=== PATIENT | male | born 1980 | race Caucasian/White ===

== ENCOUNTER 2017-05-19 21:55 | Emergency (ER) | payer OTHER ==
[2017-05-19 22:10] VITALS: TEMP 97
[2017-05-19] MEDS ORDERED: KETOROLAC 30 MG/ML 1 ML VIAL IM STA (22:38)
--- NOTE | 2017-05-19 22:51 | ED ---
Back Pain HPI - General Chief Complaint: Back Pain/Injury Stated Complaint: Back Pain Time Seen by Provider: 05/19/17 22:27 Source: patient, RN notes reviewed Limitations: no limitations - History of Present Illness Initial Comments: This is a 36-year-old male who presents to the emergency department with chief complaint of acute low back pain. Patient states he has a history of chronic low back pain since 2006 or 2007 when he had some lumbar bulging disks. Patient states this morning he awoke with some dull right-sided low back pain. He went throughout his day and return home to take a nap. When he awoke from his nap he had an increase in the pain. He decided to take a hot shower thinking that would help and there was no relief. Patient states that pain is positional, increasing with bending over. He denies any urinary symptoms such as dysuria, increased frequency or hematuria. He denies any saddle paresthesias or loss of bladder or bowel function. Denies numbness or tingling or radiation of pain down the legs.Denies fever, chills, chest pain, shortness of breath, abdominal pain, nausea or vomiting, constipation or diarrhea, dysuria or hematuria, numbness or tingling, headache or vision changes. - Related Data Previous Rx's Medication Instructions Recorded Cyclobenzaprine [Flexeril] 10 mg PO TID #21 tab 05/19/17 Ibuprofen 600 mg PO Q6HR #30 tablet 05/19/17 Allergies Allergy/AdvReac Type Severity Reaction Status Date / Time No Known Allergies Allergy Verified 05/19/17 22:09 Review of Systems ROS Statement: Those systems with pertinent positive or pertinent negative responses have been documented in the HPI. ROS Other: All systems not noted in ROS Statement are negative. Past Medical History Past Medical History: No Reported History History of Any Multi-Drug Resistant Organisms: None Reported Past Surgical History: No Surgical Hx Reported Additional Past Surgical History / Comment(s): injections in back 2010 Past Psychological History: No Psychological Hx Reported Smoking Status: Never smoker Past Alcohol Use History: None Reported Past Drug Use History: None Reported General Exam - General Exam Comments Initial Comments: General: Awake and alert, well-developed; in no apparent distress. HEENT: Head atraumatic, normocephalic. Pupils are equal, round and reactive to light. Extraocular movements intact. Neck: Supple. Normal ROM. No tenderness. Back: Tenderness on palpation of the right-sided lumbar paraspinal muscles. No vertebral bony point tenderness or SI joint tenderness. Sensation is intact. Pedal pulses are 2+ equal and palpable bilaterally. Cardiovascular: Regular rate and rhythm. No murmurs, rubs or gallops. Chest symmetrical. Respiratory: Lungs clear to auscultation bilaterally. No wheezes, rales or rhonchi. Normal respiratory effort with no use of accessory muscles. Musculoskeletal: Normal ROM, no tenderness bilateral upper and lower extremities. Ambulating normally. Skin: [place], warm and dry without rashes or lesions. Neurological: Alert and oriented x3. CN II-XII grossly intact. Speech is fluent and answers are appropriate. No focal neuro deficits. Psychiatric: Normal mood and affect. No overt signs of depression or anxiety noted. Limitations: no limitations Course Vital Signs 05/19/17 22:05 Temperature 97.0 F L Pulse Rate 89 Respiratory 16 Rate Blood Pressure 155/87 O2 Sat by Pulse 99 Oximetry Medical Decision Making - Medical Decision Making This is a 36-year-old male who presents to the emergency department with chief complaint of acute on chronic low back pain. Lumbar x-rays were obtained and were negative for any acute abnormalities. Patient received an IM injection of Toradol while in the emergency department. Patient denies any saddle paresthesias, loss of bladder or bowel function, IV drug use. Patient's pain is localized to the right-sided lumbar paraspinal muscles. Pain is positional, increasing with movement. Patient denies any urinary symptoms. He will be discharged home with prescriptions for anti-inflammatories and muscle relaxers. Patient is in agreement with [employer] voices understanding. All questions were answered. - Radiology Data Radiology results: report reviewed Lumbar spine x-ray findings: Normal alignment. Disc spaces are normal. Posterior elements are intact. I see no compression fracture. Sacroiliac joints appear normal. Impression: Negative lumbar spine exam. Disposition Clinical Impression: Strain of lumbar region Disposition: HOME SELF-CARE Condition: Good Instructions: Acute Low Back Pain (ED) Additional Instructions: Please take medications as prescribed. Please follow up with primary care provider within 1-2 days. Return to emergency department if symptoms should worsen or any concerns arise. Prescriptions: Cyclobenzaprine [Flexeril] 10 mg PO TID #21 tab Ibuprofen 600 mg PO Q6HR #30 tablet Referrals: None,Stated [Primary Care Provider] - 1-2 days Chelly Mcgrath MD [STAFF PHYSICIAN] - 1-2 days Time of Disposition: 23:49
--- NOTE | 2017-05-19 22:55 | XR ---
EXAMINATION TYPE: XR lumbar spine 2 or 3V DATE OF EXAM: 05/19/2017 COMPARISON: NONE HISTORY: Back pain TECHNIQUE: 3 views FINDINGS: Vertebra have normal alignment. Disc spaces are normal. Posterior elements are intact. I se e no compression fracture. Sacroiliac joints appear normal. IMPRESSION: Negative lumbar spine exam.
[2017-05-20 00:20] VITALS: BP 149/85; PULSE 95; RESP 18
== END 2017-05-20 00:24 | disposition home or self-care (01) ==
LOC: EC 21:55
DX: S39.012A Strain of muscle, fascia and tendon of lower back, initial encounter (principal); X50.1XXA Overexertion from prolonged static or awkward postures, initial encounter; Y92.009 Unspecified place in unspecified non-institutional (private) residence as the place of occurrence of the external cause
CPT/HCPCS: 72100; 99283; 96372; J1885

== ENCOUNTER → 2021-06-27 | Outpatient (CLI) | payer OTHER ==
--- NOTE | 2021-06-27 19:45 | CONS ---
CONSULTATION DATE OF SERVICE: 06/27/2021 This 40-year-old gentleman has been evaluated in [facility] for possible obstructive sleep apnea-hypopnea syndrome. HISTORY OF PRESENT ILLNESS/SLEEP-WAKE EVALUATION: Patient's usual sleep schedule is from 9 or 10 p.m. until 5:15 a.m. on weekdays and from 10 or 11 p.m. until 9:30 or 10 a.m. on weekends. No problems with falling asleep, although he has a TV set in the bedroom. He sleeps in different positions, including back, side and stomach. He has loud snoring. He wakes up from sleep once with nocturia. No history of hypnagogic hallucinations, sleep paralysis or cataplexy. [place] Sleepiness Scale is 2. PAST MEDICAL HISTORY: Allergic rhinitis. MEDICATIONS: Singulair, Flonase. SOCIAL HISTORY: Negative for smoking. Alcohol consumption occasional. REVIEW OF SYSTEMS: Loud snoring, awakenings from sleep. No fevers. No double vision. No recent chest pain. No shortness of breath. No abdominal pain. No bleeding episodes. No blood in the urine. No seizure episodes. FAMILY HISTORY: Snoring, sleep apnea, thyroid problems, acid reflux. PHYSICAL EXAMINATION: GENERAL: Pleasant gentleman without distress. VITAL SIGNS: BP 151/95, HR 73, RR 16, height 5 feet 6-1/2 inches, weight 286.6 pounds, body mass index 45.6, temperature 97.6, oxygen saturation at room air 97%. HEENT: PERRLA, EOMI, evaluation of oropharynx showed tongue protrudes midline. Extremely low position of soft palate; Mallampati IV. NECK: Supple, no JVD. Thyroid is not palpable. Neck is wide; 18 inches in circumference. LUNGS: Clear to percussion and to auscultation. Good air exchange. No wheezing or rhonchi. HEART: S1, S2 regular. No murmurs, gallops, or rubs. ABDOMEN: Obese. EXTREMITIES: No clubbing or cyanosis. ADDICTION PROFESSIONAL: Awake, alert, and oriented X3. Cranial nerves 2 to 7 intact. There is no fasciculation or atrophy. noted. No focal deficits observed. IMPRESSION: 1. Loud snoring, awakenings from sleep with nocturia, extremely low position of soft palate, Mallampati IV, wide neck, 18 inches in circumference; obstructive sleep apnea-hypopnea syndrome. 2. Obesity, BMI 45.6. 3. Hypertension in the office today. 4. Allergic rhinitis. PLAN: 1. Polysomnography for evaluation of patient's breathing during sleep. 2. CPAP/BiPAP titration if sleep study confirms obstructive sleep apnea-hypopnea syndrome. 3. Preferable position during sleep on the side. 4. No driving if patient feels any sleepiness. 5. I will see patient for follow up visit to explain results of testing and following plan. Thank you very much for referring this patient for consultation. Sincerely, Nehemias Foster MD, PhD, FAASM Diplomat of [employer] Sleep Medicine [employer] of [place] [employer] [facility] [place] [facility] / HANNAHN: [id number] /
== END ==
LOC: SLEEP 15:07
PROVIDERS: ATTEND Internal Medicine
DX: G47.33 Obstructive sleep apnea (adult) (pediatric) (principal); R35.1 Nocturia; E66.9 Obesity, unspecified; I10 Essential (primary) hypertension; J30.89 Other allergic rhinitis; Z68.42 Body mass index [BMI] 45.0-49.9, adult
CPT/HCPCS: 99211

== ENCOUNTER 2023-10-22 07:54 | Day surgery (SDC) | payer OTHER ==
[2023-10-20 13:24] VITALS: BMI 43.8
[~2023-10-22 07:54] MED LIST: HYDROmorphone 0.5 MG/0.5 ML SYRINGE IVP PRN; Pre Op ABX Message 1 EACH MISC MISCELLANE ONE; fentaNYL (PF) 50 MCG/ML 2 ML AMP IV PRN
[2023-10-22 08:07] VITALS: RESP 16
[2023-10-22] MEDS: LACTATED RINGERS 1,000 ML IV SCH (08:14)
[2023-10-22] MEDS ORDERED: ONDANSETRON 4 MG/2 ML VIAL IM STA (08:25)
[2023-10-22] MEDS: DEXAMETHASONE SOD PHOSPHATE 4 MG/ML 1 ML VIAL IVP PRN (08:33)
[2023-10-22] MEDS: ONDANSETRON 4 MG/2 ML VIAL IVP STA (08:35)
[2023-10-22] MEDS ORDERED: ceFAZolin 1 GM/50 ML BAG (PMX) ONE (09:18)
[2023-10-22] MEDS ORDERED: fentaNYL (PF) 50 MCG/ML 2 ML AMP ONE (09:18)
[2023-10-22] MEDS ORDERED: MIDAZOLAM 2 MG/2 ML VIAL ONE (09:18)
[2023-10-22] MEDS ORDERED: LIDOCAINE 1% INJ 10MG/ML (20 ML MDV) ONE (09:18)
[2023-10-22] MEDS ORDERED: PROPOFOL 10 MG/ML 20 ML VIAL IV ONE (09:18)
[2023-10-22] MEDS: LIDOCAINE 1%-EPI 1:100,000 20 ML VIAL SQ ONE ×2 (09:40→09:47)
[2023-10-22] MEDS: LACTATED RINGERS 1,000 ML IV ONE (10:06)
[2023-10-22 10:19] VITALS: TEMP 97.1
[2023-10-22 12:09] VITALS: BP 129/76; PULSE 76
--- NOTE | 2023-10-30 16:17 | P.OP ---
Date of Procedure: 10/22/23 Preoperative Diagnosis: right arm lipoma Postoperative Diagnosis: right arm lipoma Procedure(s) Performed: excision of right arm lipoma Anesthesia: DENISE Surgeon: Sabino Kumar Estimated Blood Loss (ml): 5 Pathology: other (lipoma) Condition: stable Disposition: PACU Description of Procedure: the patient is placed on the operative table in the supine position. He received general anesthesia. His right arm was prepped and draped you sterile fashion. The skin was incised over the lipoma. Using blunt and sharp suction electrocautery the lipoma was dissected free. The lipoma measured greater than 10 cm. The wound bed for hemostasis. The skin was then closed with interrupted 3 oh-0 Monocryl suture. Dermabond dressing applied. Patient taught procedure well. Sent to recovery room in stable condition.
== END 2023-10-22 12:22 | disposition home or self-care (01) ==
LOC: OR 07:54
PROVIDERS: ATTEND Surgery
DX: D17.21 Benign lipomatous neoplasm of skin and subcutaneous tissue of right arm (principal); F32.A Depression, unspecified; Z79.899 Other long term (current) drug therapy
CPT/HCPCS: 24071; 88304; J2250; J1100; J2405; J2001; J3010; J0690; J2704